=== PATIENT | male | born 1955 | race Caucasian/White ===

== ENCOUNTER 2022-08-10 | Outpatient (REF) | payer MEDICARE, SELFPAY ==
--- NOTE | 2022-08-10 | ECG_ITS ---
Test Reason : preop Blood Pressure : / mmHG Vent. Rate : 083 BPM Atrial Rate : 083 BPM P-R Int : 194 ms QRS Dur : 092 ms QT Int : 370 ms P-R-T Axes : 062 054 042 degrees QTc Int : 434 ms Normal sinus rhythm Septal infarct , age undetermined Abnormal ECG No previous ECGs available Referred By: Madalyn Conn Electronically Signed By:Armen Cruz
[2022-08-10 12:09] VITALS: BP 147/70; PULSE 90; RESP 20; O2SAT 96; BMI 34.7
--- NOTE | 2022-08-10 12:19 | P.CONAN_ITS ---
HPI - Anesthesia Eval Consult details Narrative: 66yo M for Oblique Lumbar Interbody Fusion L45, 09/05/2022 Follows cardiology in [place]. CAD with stents > 15 years ago. >4 mets. Pending clearance [facility], [facility] Past Medical History Medical History (Updated 08/10/22 @ 12:09 by Yeny Puentes RN) Back pain CAD (coronary artery disease) Diabetes Elevated cholesterol GERD (gastroesophageal reflux disease) Hemochromatosis Pancreatitis Sleep apnea Family History Family history of problems with anesthesia: No Surgical History Surgical History (Updated 08/11/22 @ 14:08 by Yeny Puentes RN) H/O colonoscopy History of esophagogastroduodenoscopy (EGD) Hx of heart artery stent History of Problems with Anesthesia: No Social History Social History Are you a primary critical care specialist to a significant other at home: No Do you presently have visiting nurse or other home services: No Patient Tobacco Use Status: Former Tobacco user Quit Date: age 21 Tobacco use type: Cigarette Use of substances other than those prescribed or required for medical reasons: No Have you been hit, kicked, punched, or otherwise hurt by someone within the past year? If so, by whom?: No Are you DNR?: No Advance Directives Information Provided: Yes (as above noted) Advance Directives on File: No Recently lost weight without trying: No Eating poorly because of decreased appetite: No Nutrition Risks: No Nutritional Risk Poor oral hygiene: No (missing tooth lower left) Narrative Narrative: No recent illness No CP/SOB with bike riding. 13-17 miles bike riding daily on recent vacation. Meds Allergies Allergy/AdvReac Type Severity Reaction Status Date / Time No Known Allergies Allergy Verified 08/03/22 10:00 Home Medications Medication Instructions Recorded Confirmed Last Taken Type cyanocobalamin (vitamin B-12) 1,000 mcg PO DAILY 08/03/22 08/10/22 Unknown History 1,000 mcg tablet (Vitamin B-12) empagliflozin 25 mg tablet 25 mg PO QAM 08/03/22 08/10/22 Unknown History insulin glargine 100 unit/mL (3 50 unit subcut BID 08/03/22 08/10/22 Unknown History mL) subcutaneous pen (Lantus Solostar U-100 Insulin) insulin lispro protamine-lispro 35 unit subcut TIDAC 08/03/22 08/10/22 Unknown History 100 unit/mL (50-50) subcutaneous pen magnesium oxide 400 mg PO DAILY 08/03/22 08/10/22 Unknown History metformin 1,000 mg tablet 1,000 mg PO BID 08/03/22 08/10/22 Unknown History omeprazole 20 mg capsule,delayed 20 mg PO QAM 08/03/22 08/10/22 Unknown History release pyridoxine (vitamin B6) 100 mg 100 mg PO DAILY 08/03/22 08/10/22 Unknown History tablet rosuvastatin 40 mg tablet 40 mg PO DAILY 08/03/22 08/10/22 Unknown History turmeric root extract 500 mg 500 mg PO DAILY 08/03/22 08/10/22 Unknown History capsule cinnamon bark 500 mg capsule 1,000 mg PO BID 08/10/22 08/10/22 Unknown History (Cinnamon) Exam Exam Date and Time: August 10, 2022 1219 Height,Weight and Vital Signs: Height 6 ft 2 in Weight 122.47 kg Last Vital Signs Pulse 90 08/10/22 12:09 Resp 20 08/10/22 12:09 BP 147/70 H 08/10/22 12:09 Pulse Ox 96 08/10/22 12:09 O2 Del Method Room Air 08/10/22 12:09 Pertinent Lab Results Pertinent Lab Results: Lab Results 08/10/22 08/10/22 08/10/22 Range/Units 13:13 13:13 13:13 WBC 5.6 (4.8-10.8) X10*3/uL RBC 5.66 (4.60-5.80) X10*6/uL Hgb 17.9 (14.0-18.0) g/dl Hct 49.9 (42.0-52.0) % MCV 88.2 (80.0-98.0) fL MCH 31.6 (27.0-33.0) pg MCHC 35.9 (31.0-36.0) g/dl RDW 12.3 (11.0-16.0) % Plt Count 172 (160-400) X10*3/uL MPV 11.5 (9.4-12.4) fL Absolute Nucleated RBC 0.000 (0.0-0.012) X10*3/uL Nucleated RBC % (auto) 0.0 (0.0-0.2) /100WBC Sodium 139 (135-145) mmol/L Potassium 4.7 (3.3-5.1) mmol/L Chloride 108 (96-108) mmol/L Carbon Dioxide 20 L (22-29) mmol/L Anion Gap 16 (12-20) BUN 17 H (9-16) mg/dL Creatinine 1.00 (0.5-1.4) mg/dL Estim Creat Clear Calc 102.4 Estimated GFR > 60 Random Glucose 301 H (60-115) mg/dL Estimat Average Glucose 183 mg/dL Hemoglobin A1c % 8.0 % Calcium 9.6 (8.4-10.2) mg/dL Narrative Narrative: EKG 07/2022 Vent. Rate : 083 BPM ? ? Atrial Rate : 083 BPM ?? P-R Int : 194 ms? QRS Dur : 092 ms ? ? QT Int : 370 ms ? ? ? P-R-T Axes : 062 054 042 degrees ?? QTc Int : 434 ms ? Normal sinus rhythm Septal infarct , age undetermined Abnormal ECG No previous ECGs available When c/w outside facility EKG, no change Airway Mallampati Class: I TM Dist: <=3cm Neck ROM: Limited (Cervical disc disease) Loose/Missing/Broken Teeth: Yes (1 x lower molar right missing) Heart: RRR Lungs: CTAB Assessment and Plan Assessment Anesthesia Assessment: Anesthesia Plan Discussed and PAT Visit Final Anesthetic Review Family History of Problems with Anesthesia: No History of Problems with Anesthesia: No
[2022-08-10 14:01] LABS: Hematocrit 49.9 % (42.0-52.0); Hemoglobin 17.9 g/dl (14.0-18.0); Mean Corpuscular HGB Conc 35.9 g/dl (31.0-36.0); Mean Corpuscular Hemoglobin 31.6 pg (27.0-33.0); Mean Corpuscular Volume 88.2 fL (80.0-98.0); Mean Platelet Volume 11.5 fL (9.4-12.4); Platelet Count 172 X10*3/uL (160-400); Red Blood Count 5.66 X10*6/uL (4.60-5.80); Red Cell Distribution Width 12.3 % (11.0-16.0); White Blood Count 5.6 X10*3/uL (4.8-10.8)
[2022-08-10 14:11] LABS: Estimated Average Glucose 183 mg/dL
[2022-08-10 15:44] LABS: Anion Gap 16 (12-20); Blood Urea Nitrogen 17 mg/dL (9-16); Calcium 9.6 mg/dL (8.4-10.2); Carbon Dioxide 20 mmol/L (22-29); Chloride 108 mmol/L (96-108); Creatinine Clr Calc Pharmacy 102.4; Estimated Glomerular Filt Rate > 60; Glucose Random 301 mg/dL (60-115); Potassium 4.7 mmol/L (3.3-5.1); Sodium 139 mmol/L (135-145)
== END 2022-08-10 00:01 ==
LOC: HO.PAT
PROVIDERS: Nurse Practitioner; Visit Provider Neurological Surgery
DX: Z01.818 Encounter for other preprocedural examination (principal); M43.16 Spondylolisthesis, lumbar region; M48.062 Spinal stenosis, lumbar region with neurogenic claudication
CPT/HCPCS: 36415; 80048; 83036; 85027; 93005